=== PATIENT | male | born 1970 | race African-American/Black ===

== ENCOUNTER 2016-07-04 14:47 | Emergency (ER) | payer OTHER ==
[~2016-07-04] VITALS: Ht 175.3 cm; Wt 90.7 kg
[~2016-07-04 14:47] MED LIST: BACTRIM DS TAB1 EAC1 PO; BAYER CHEWABLE81 MG PO; BRILINTA90 MG PO; COREG3.125 MG PO; HIGH BP MED; LIPITOR10 MG PO; NORCO 5-325 TA1 EACH PO; PEPCID40 MG PO; PRINIVIL20 M1 PO
[2016-07-04] MEDS ORDERED: MOBIC15 MG PO (15:31)
[2016-07-04 16:00] VITALS: BP 131/76
[2016-09-20] MEDS ORDERED: PREDNISONE 20 M20 MG PO (11:01)
[2016-09-20] MEDS ORDERED: NORCO 5-325 TA1 EACH PO (11:01)
[2016-09-20] MEDS ORDERED: PRILOSEC 20 MG20 MG PO (11:21)
== END 2016-07-04 16:00 | disposition home or self-care (01) ==
LOC: ER 14:47
DX: M54.5 Low back pain (principal); M79.631 Pain in right forearm; J45.909 Unspecified asthma, uncomplicated; I10 Essential (primary) hypertension; F41.9 Anxiety disorder, unspecified; G43.909 Migraine, unspecified, not intractable, without status migrainosus; Z88.0 Allergy status to penicillin; Z87.891 Personal history of nicotine dependence

== ENCOUNTER 2016-09-15 22:23 | Inpatient (IN) | payer OTHER ==
[~2016-09-15] VITALS: Ht 175.3 cm; Wt 87.5 kg
--- NOTE | ~2016-09-15 | EKG ---
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 : 1970 Requested By: Beltran Hastings Order Number: [id number] MD: Leonides Tompkins Measurements Intervals [place] Rate: 109 P: 44 [place]: 140 QRS: 3 QRSD: 154 T: 102 QT: 381 QTc: 514 Interpretive Statements Sinus tachycardia Left bundle branch block Compared to ECG 01/11/2016 14:37:29 Heart rate has increased Electronically Signed On 09-16-2016 9:05:56 CDT by Leonides Tompkins [email or web address] <ELECTRONICALLY SIGNED> By: Leonides Tompkins MD, [facility] 09/16/16 0905 25 25 Leonides Tompkins MD, [facility] /EPI
--- NOTE | ~2016-09-15 | EKG ---
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 : 1970 Requested By: Leslee Ventura Order Number: [id number] MD: Leonides Tompkins Measurements Intervals [place] Rate: 76 P: 48 ID: 140 QRS: -1 QRSD: 161 T: -61 QT: 460 QTc: 518 Interpretive Statements Sinus rhythm Left bundle branch block Compared to ECG 09/15/2016 22:26:22 Sinus tachycardia no longer present Electronically Signed On 09-17-2016 8:25:59 CDT by Leonides Tompkins [email or web address] <ELECTRONICALLY SIGNED> By: Leonides Tompkins MD, [facility] 09/17/16 0825 1132 1132 Leonides Tompkins MD, [facility] /EPI
--- NOTE | ~2016-09-15 | CATHLAB ---
[facility] [address] [address] [place] [address] INVASIVE PROCEDURE REPORT Name: SILKE MANN Room #: 201-P [facility]#: [id number] Admission: 09/16/16 Attend Phys: Lavon Hung MD Discharge: 09/16/16 Date of : 70 Date of Service: 09/17/16 0106 Report #: [id number] THIS REPORT FOR: //name// CC: Lavon Hung MD DATE OF SERVICE: 09/16/2016 DATE OF SERVICE: 09/16/2016. INDICATIONS: A 46-year-old male patient with known coronary artery disease status post stenting with recurrent anginal symptoms, class 2-3. PROCEDURES: 1. Left heart catheterization. 2. Selective left and right coronary angiography. 3. Measurement of left ventricular end diastolic pressures. 4. Supervision of conscious sedation. WARP TRUCKER: Charlie Bowman M.D. BRIEF DESCRIPTION OF PROCEDURE: After informed consent was obtained, the patient was brought to the cardiac catheterization laboratory in stable condition. The patient's right groin was prepped and draped in the usual sterile manner after which lidocaine was then instilled. Utilizing a modified Seldinger technique, the right femoral artery was then accessed. Under fluoroscopic visualization using selective coronary catheters, the right and left coronaries were opacified and visualized. The left ventriculogram was likewise imaged per standard protocol with EDP being measured. Subsequent to this, the sheath was removed, hemostasis achieved. The patient tolerated the procedure well. There were no complications. FINDINGS: 1. RHYTHM: The patient's rhythm was sinus throughout the entire procedure. 2. HEMODYNAMICS: A. Aortic pressure 146/74. B. Left ventricular end diastolic pressures 18-20. 3. FLUOROSCOPY: Under fluoroscopic visualization, there was some minimal calcific plaquing along the epicardial coronary arteries. There was evidence of a stent noted fluoroscopically. No significant calcific plaquing in the valvular or intramyocardial structures of the heart. 4. ANGIOGRAPHY: This is a right coronary dominant system. A. Left main is of normal origin and caliber, bifurcates left anterior descending and left circumflex free of high-grade disease. B. Left anterior descending is a moderate caliber type 3 vessel which courses in the anterior interventricular sulcus giving rise to septal and diagonal branches. There are luminal irregularities of less than 30% noted throughout [facility] [address] [place] [address] INVASIVE PROCEDURE REPORT Name: SILKE MANN Room #: 201-P [facility]#: [id number] Admission: 09/16/16 Attend Phys: Lavon Hung MD Discharge: 09/16/16 Date of : 70 Date of Service: 09/17/16 0106 Report #: [id number] its course as it hooks the apex and terminates in posterior aspect of left ventricle. C. Left circumflex is a moderate caliber vessel with luminal irregularities throughout its proximal and mid course. It gives rise to marginal branches free of high-grade lesions. D. Right coronary artery is a large caliber vessel of normal origin. It proceeds posteriorly giving rise to posterior descending artery, posterior wall branch. This was a 40% to 50% proximal PDA lesion present. This does not appear to be flow limiting. IMPRESSION: 1. Coronary artery disease, nonobstructive. 2. Normal hemodynamics. <ELECTRONICALLY SIGNED> By: Charlie Bowman MD 09/20/16 1721 0106 1103 Charlie Bowman MD /nt
[~2016-09-15 22:23] MED LIST changes: +MOBIC15 MG PO
[2016-09-15 23:39] LABS: HEMATOCRIT 39.7 % (42.0-52.0); HEMOGLOBIN 13.1 gm/dL (14.0-18.0); MCH 28.6 pg (26.0-34.0); MCHC 32.9 g/dL (28.0-37.0); PLATELET COUNT 315 thou/uL (150-400); RBC 4.57 mil/uL (4.50-6.00); RDW 14.9 % (10.5-14.5); WBC 9.7 thou/uL (4.0-11.0)
[2016-09-15 23:43] LABS: MANUAL DIFF YES
[2016-09-15 23:45] LABS: ANION GAP 8 mmol/L (7-16); BUN 19 mg/dL (7-18); CALCIUM 8.9 mg/dL (8.5-10.1); CHLORIDE 100 mmol/L (98-107); CO2 29 mmol/L (21-32); CREATININE 1.5 mg/dL (0.6-1.3); GLUCOSE 102 mg/dL (70-99); POTASSIUM 3.7 mmol/L (3.5-5.1); SODIUM 137 mmol/L (136-145)
[2016-09-15 23:47] LABS: APTT 30.4 Seconds (24.5-32.8); PROTIME 9.9 Seconds (9.3-11.4)
[2016-09-16 00:15] LABS: TOTAL CELL COUNT 100
[2016-09-16 00:21] LABS: ALBUMIN 3.9 g/dL (3.4-5.0); ALKALINE PHOSPHATASE 140 U/L (46-116); CK-MB MASS 1.5 ng/mL (<0.5-3.6); MAGNESIUM 1.9 mg/dL (1.8-2.4); NT-PRO BRAIN NAT PEPTIDE 181 pg/mL (<300); SGOT 31 U/L (15-37); SGPT 44 U/L (30-65); TOTAL BILIRUBIN 0.5 mg/dL (<0.1-1.0); TOTAL PROTEIN 8.2 g/dL (6.4-8.2); TROPONIN-I < 0.04 ng/mL (<0.04-0.07)
[2016-09-16] MEDS ORDERED: ZANTAC 150MG T150 MG PO (07:29)
[2016-09-16] MEDS ORDERED: PLAVIX 75 MG TA75 M1 PO (07:31)
[2016-09-16] MEDS ORDERED: VALSARTAN-HCTZ1 EAC1 PO (07:33)
[2016-09-16] MEDS ORDERED: NITROSTAT0.4 M1 PO (07:35)
[2016-09-16] MEDS ORDERED: IMDUR 30 MG TAB30 M1 PO (07:38)
[2016-09-16] MEDS ORDERED: PERCOCET PO (16:36)
[2016-09-20] MEDS ORDERED: PREDNISONE 20 M20 MG PO (11:01)
[2016-09-20] MEDS ORDERED: NORCO 5-325 TA1 EACH PO (11:01)
[2016-09-20] MEDS ORDERED: PRILOSEC 20 MG20 MG PO (11:21)
== END 2016-09-16 18:24 | disposition home or self-care (01) | DRG 206 ==
LOC: ER 22:23 → 2N 09-16 00:08 → EROBS 09-16 00:08 → 2N 09-16 01:10
PROVIDERS: Emergency Medicine
DX: M94.0 Chondrocostal junction syndrome [Tietze] (principal); I50.20 Unspecified systolic (congestive) heart failure; I11.0 Hypertensive heart disease with heart failure; I25.10 Atherosclerotic heart disease of native coronary artery without angina pectoris; E78.5 Hyperlipidemia, unspecified; J45.909 Unspecified asthma, uncomplicated; F41.9 Anxiety disorder, unspecified; F17.210 Nicotine dependence, cigarettes, uncomplicated; G43.909 Migraine, unspecified, not intractable, without status migrainosus; R79.89 Other specified abnormal findings of blood chemistry; Z95.5 Presence of coronary angioplasty implant and graft; Z72.89 Other problems related to lifestyle; I25.2 Old myocardial infarction; Z88.0 Allergy status to penicillin; Z91.018 Allergy to other foods; Z79.899 Other long term (current) drug therapy; Z87.828 Personal history of other (healed) physical injury and trauma; Z82.49 Family history of ischemic heart disease and other diseases of the circulatory system
CPT/HCPCS: 10081